=== PATIENT | male | born 1935 | race Caucasian/White ===

== ENCOUNTER 2016-12-05 20:18 | Emergency (ER) | payer MEDICARE ==
[~2016-12-05] VITALS: Ht 185.4 cm; Wt 79.4 kg
[2016-12-05 20:23] VITALS: BP 147/96
[2016-12-05] MEDS ORDERED: INSUHUMDS SC (20:30)
[2016-12-05] MEDS ORDERED: TOUJ1.2I SC (20:30)
[2016-12-05] MEDS ORDERED: OXYC1TAB23 PO (20:30)
[2016-12-05] MEDS ORDERED: NS 500 ML IV ONE (21:45)
[2016-12-05] MEDS ORDERED: PROPOFOL 200 MG/20 ML VIAL As Ordered ONE ×2 (21:55→22:14)
[2016-12-05] MEDS ORDERED: PROPOFOL 200 MG/20 ML VIAL IV ONE ×2 (22:30)
--- NOTE | 2016-12-06 08:05 | REP ---
RIGHT HIP, TWO VIEWS: HISTORY: Postreduction. COMPARISON: 9:20 p.m., 12/05/2016. The patient is status post right total hip replacement. The patient is status post reduction of a superolateral dislocation of the distal femoral prosthesis. There is no acute fracture or dislocation. Ossified densities are present superior to the greater trochanter. This represents dystrophic calcification. IMPRESSION: The patient is status post reduction of a superolateral dislocation. There is anatomic alignment. Signed by Pieter Nino MD 12/06/2016 09:01 A
--- NOTE | 2016-12-09 15:56 | REP ---
RIGHT HIP, TWO VIEWS: HISTORY: Dislocation. The patient is status post right total hip replacement. There is superolateral dislocation of the femur with respect to the acetabulum. There is no definite fracture. Calcifications are present superior to the greater trochanter. This represents ligamentous or tendon calcification or dystrophic calcification. IMPRESSION: There is superolateral dislocation of the femur with respect to the acetabulum. Signed by Pieter Nino MD 12/09/2016 03:58 P
== END 2016-12-05 23:15 | disposition home or self-care (01) ==
LOC: M ED 21:19
DX: T84.020A Dislocation of internal right hip prosthesis, initial encounter (principal); M25.551 Pain in right hip; X58.XXXA Exposure to other specified factors, initial encounter; Y92.89 Other specified places as the place of occurrence of the external cause; Z96.641 Presence of right artificial hip joint; E11.9 Type 2 diabetes mellitus without complications; Z79.4 Long term (current) use of insulin

== ENCOUNTER 2017-02-21 21:20 | Emergency (ER) | payer MEDICARE ==
[~2017-02-21] VITALS: Ht 185.4 cm; Wt 84.1 kg
[~2017-02-21 21:20] MED LIST: INSUHUMDS SC; OXYC1TAB23 PO; TOUJ1.2I SC
[2017-02-21] MEDS ORDERED: ONDANSETRON 4MG/2ML VIAL (J2405) IV ONE (22:15)
[2017-02-21] MEDS ORDERED: MORPHINE 4 MG/ML 1ML SYRINGE IV ONE ×2 (22:15→23:00)
[2017-02-21] MEDS ORDERED: PERCOCET 5MG/325MG TAB PO ONE (23:15)
[2017-02-21 23:41] VITALS: BP 150/79
--- NOTE | 2017-02-22 08:33 | REP ---
AP pelvis: Single view. History: Post reduction. Comparison radiographs are from 10:34 p.m. on this same date. Findings: Prosthetic right hip components are well aligned with respect to each other and their [id number] bones on this radiograph consistent with reduction. No pelvic fracture is seen. The left hip is intact. The patient is status post laminectomy and unilateral left-sided fusion in the lumbar spine across the L2 through L4 levels. Impression: Single AP view shows normal alignment of the prosthetic right hip. Signed by Frank Oakley MD 02/22/2017 08:49 A
--- NOTE | 2017-02-22 08:37 | REP ---
Pelvis: Single AP view: History: Hip dislocation. Findings: Single AP view of the pelvis confirms the presence of a superior dislocation of the prosthetic right hip. Lumbar spine fusion and laminectomy changes are seen along with vascular calcification. No pelvic sacral or left hip fracture is seen. The distal end of the femoral stem component of the prosthesis is not included in the field of view. Impression: Prosthetic right hip dislocation. Signed by Frank Oakley MD 02/22/2017 08:50 A
--- NOTE | 2017-02-22 08:37 | REP ---
Right hip: Two views. History: Hip dislocation. Findings: AP and cross-table lateral views of the right hip confirm the presence of a superiorly dislocated femoral component of the prosthetic right hip. No fracture is evident. Impression: Prosthetic right hip dislocation. Signed by Frank Oakley MD 02/22/2017 08:50 A
== END 2017-02-21 23:42 | disposition home or self-care (01) ==
LOC: M ED 21:20
DX: T84.020A Dislocation of internal right hip prosthesis, initial encounter (principal); Y79.2 Prosthetic and other implants, materials and accessory orthopedic devices associated with adverse incidents; E11.9 Type 2 diabetes mellitus without complications; I11.9 Hypertensive heart disease without heart failure; Z79.4 Long term (current) use of insulin
CPT/HCPCS: 27265; 72190; 73502; 96374; 96375; 96376; 99284; J2405; J3360